=== PATIENT | female | born 1985 | race Caucasian/White ===

== ENCOUNTER 2024-01-16 13:08 | Outpatient (CLI) | payer OTHER | END 2024-01-16 13:11 | disposition home or self-care (01) | LOC: SONOGRAMA 13:08 | PROVIDERS: ATTEND Pathology Anatomic Pathology & Clinical Pathology | DX: D34 Benign neoplasm of thyroid gland (principal); E06.3 Autoimmune thyroiditis; E04.1 Nontoxic single thyroid nodule ==